=== PATIENT | female | born 1970 ===

== ENCOUNTER 2018-05-09 12:05 | Emergency (ER) | payer MEDICAID ==
[2018-05-09 12:18] VITALS: PULSE 67; TEMP 97.8; O2SAT 98
--- NOTE | 2018-05-09 13:14 | ED PDOC ---
Lower Extremity Pain/Injury Time Seen by Provider: 05/09/18 12:35 Chief Complaint (Nursing): Lower Extremity Problem/Injury Chief Complaint (Provider): Right Leg History Per: Patient History/Exam Limitations: no limitations Onset/Duration Of Symptoms: Days Current Symptoms Are (Timing): Still Present Additional Complaint(s): 47 year old female with a past medical history of depression presents to the ED for an evaluation of right leg pain onset for 2 weeks. States the pain becomes worse with movement. She had multiple surgery to remove boils on her right leg many years ago as well as multiple work-ups done by her primary care. Pain has been ongoing even after the surgery, but more in 2 weeks. Denies dizziness, chest pain, fever, nausea, vomiting, abdominal pain, urinary symptoms or incontinence. No long distance travel. No hormone tx. No new injury. PMD: Nate Estrada Past Medical History Reviewed: Historical Data, Nursing Documentation, Vital Signs Vital Signs: Last Vital Signs Temp 97.8 F 05/09/18 12:17 Pulse 67 05/09/18 12:17 Resp 20 05/09/18 12:17 BP 151/84 H 05/09/18 12:17 Pulse Ox 98 05/09/18 12:17 - Medical History PMH: Depression - Surgical History Other surgeries: boil surgery leg - Family History Family History: States: Unknown Family Hx - Social History Current smoker - smoking cessation education provided: No Alcohol: None Drugs: Denies - Home Medications Home Medications: Ambulatory Orders Medication Instructions Recorded Ibuprofen [Motrin] 600 mg PO TID 7 Days tab 05/09/18 - Allergies Allergies/Adverse Reactions: Allergies Allergy/AdvReac Type Severity Reaction Status Date / Time No Known Allergies Allergy Verified 05/09/18 12:26 Review of Systems ROS Statement: Except As Marked, All Systems Reviewed And Found Negative Constitutional: Negative for: Fever Cardiovascular: Negative for: Chest Pain Gastrointestinal: Negative for: Nausea, Vomiting, Abdominal Pain Genitourinary Female: Negative for: Dysuria, Frequency, Incontinence Musculoskeletal: Positive for: Leg Pain (right ) Neurological: Negative for: Headache, Dizziness Physical Exam - Reviewed Nursing Documentation Reviewed: Yes Vital Signs Reviewed: Yes - Physical Exam Appears: Positive for: Non-toxic, No Acute Distress Head Exam: Positive for: ATRAUMATIC, NORMAL INSPECTION, NORMOCEPHALIC Skin: Positive for: Normal Color, Warm, Dry Eye Exam: Positive for: Normal appearance, EOMI, PERRL ENT: Positive for: Normal ENT Inspection Neck: Positive for: Normal, Painless ROM, Supple. Negative for: Decreased ROM Cardiovascular/Chest: Positive for: Regular Rate, Rhythm. Negative for: Murmur Respiratory: Positive for: Normal Breath Sounds. Negative for: Decreased Breath Sounds, Wheezing, Respiratory Distress Gastrointestinal/Abdominal: Positive for: Normal Exam, Bowel Sounds, Soft. Negative for: Tenderness, Guarding, Rebound Back: Positive for: Normal Inspection. Negative for: L CVA Tenderness, R CVA Tenderness Extremity: Positive for: Normal ROM (straight leg test negative). Negative for : Tenderness, Pedal Edema, Calf Tenderness, Deformity Neurologic/Psych: Positive for: Alert, Oriented (x3), Other (motor strength 5/5) . Negative for: Motor/Sensory Deficits - ECG ECG: Positive for: Interpreted By Me, Viewed By Me ECG Rhythm: Positive for: Normal QRS, Normal ST Segment, Sinus Rhythm O2 Sat by Pulse Oximetry: 98 (RA) Pulse Ox Interpretation: Normal - CT Scan/US US Other Rad Studies (CT/US): Read By Radiologist Other Rad Interpretation: no dvt - Progress ED Course And Treament: 1426: Stable. AAOx3. Pain free. Tolerated po. Fu with pcp. Chronic pain. Ambulated with no issues. Medical Decision Making Medical Decision Making: Time: 1258 Initial Impression: right leg pain Initial Plan: --EKG --Toradol 15mg --Duplex Lower Ex --Reevaluation Scribe Attestation: Documented by Laurel King, acting as a scribe for Riky Locke MD Provider Scribe Attestation: All medical record entries made by the Scribe were at my direction and personally dictated by me. I have reviewed the chart and agree that the record accurately reflects my personal performance of the history, physical exam, medical decision making, and the department course for this patient. I have also personally directed, reviewed, and agree with the discharge instructions and disposition. Disposition - Clinical Impression Clinical Impression: Leg pain - Patient ED Disposition Is Patient to be Admitted: No Counseled Patient/Family Regarding: Studies Performed, Diagnosis, Need For Followup, Rx Given - Disposition Referrals: Nate Estrada MD [Staff Provider] - 05/10/18 Disposition: Routine/Home Disposition Time: 14:28 Condition: STABLE Additional Instructions: Return if not better in 3 days. Prescriptions: Ibuprofen [Motrin] 600 mg PO TID 7 Days tab Instructions: Muscle and Bone Pain (DC) Forms: [employer] (Arabic) Print Language: [place]
--- NOTE | 2018-05-09 14:21 | US ---
Date of service: 05/09/2018 PROCEDURE: Right lower extremity venous duplex Doppler. HISTORY: r/o dvt COMPARISON: None available. TECHNIQUE: Common femoral, superficial femoral, popliteal and posterior tibial veins were evaluated. Flow was assessed with color Doppler, compressibility, assessment of phasic flow and augmentation response. FINDINGS: COMMON FEMORAL VEIN: Normal flow, compressibility and augmentation response. SUPERFICIAL FEMORAL VEIN: Normal flow, compressibility and augmentation response. POPLITEAL VEIN: Normal flow, compressibility and augmentation response. POSTERIOR TIBIAL VEIN: Normal flow, compressibility and augmentation response. OTHER FINDINGS: None. IMPRESSION: No evidence of deep venous thrombosis in the right lower extremity.
[2018-05-09 15:37] VITALS: BP 125/84; RESP 18
--- NOTE | 2018-05-09 18:51 | CARD ---
APPROVED REPORT Date of service: 05/09/2018 <Conclusion> Normal sinus rhythm Cannot rule out Anterior infarct, age undetermined Abnormal ECG
== END 2018-05-09 15:40 | disposition home or self-care (01) ==
LOC: H.ER 12:05
DX: M79.604 Pain in right leg (principal)
CPT/HCPCS: 81025; 93005; 93971; 96372; 99284; J1885